=== PATIENT | male | born 1950 | race Two or more races ===

== ENCOUNTER 2021-03-21 13:43 | Inpatient (IN) | payer OTHER ==
[~2021-03-21] VITALS: Ht 165.1 cm; Wt 70.7 kg
[2021-03-21 14:20] LABS: Basophils # (auto) 0 10 ^3/uL (0-0.2); Basophils % (auto) 0.5 % (0.0-2.0); Eosinophils # (auto) 0.1 10 ^3/uL (0-0.8); Eosinophils % (auto) 1.5 % (0.0-7.0); Hematocrit 43.2 % (41.0-53.0); Hemoglobin 14.5 g/dL (13.5-17.5); Lymphocytes # (auto) 2.8 10 ^3/uL (0.4-5.4); Lymphocytes % (auto) 31.4 % (10.0-50.0); Mean Corpuscular Hgb Conc. 33.5 g/dL (32.0-36.0); Mean Corpuscular Volume 86.6 fL (80.0-100.0); Monocytes # (auto) 0.6 10 ^3/uL (0-1.3); Monocytes % (auto) 6.7 % (0.0-12.0); Neutrophils # (auto) 5.4 10 ^3/uL (1.6-8.6); Neutrophils % (auto) 59.9 % (37.0-80.0); Nucleated Red Blood Cells % 0.1 %; Red Blood Cells 4.98 10^6/uL (4.5-5.90); Red Cell Distribution Width 14.7 % (11.8-14.3)
[2021-03-21 14:50] LABS: Alanine Aminotransferase 23 U/L (16-61); Albumin 3.6 g/dL (3.4-5.0); Anion Gap 10 (5-15); Aspartate Aminotransferase 14 U/L (15-37); BUN/Creatinine Ratio 16.3; Blood Urea Nitrogen 26 mg/dL (7-18); Calcium 9.1 mg/dL (8.5-10.1); Carbon Dioxide 26 mmol/L (21-32); Chloride 101 mmol/L (98-107); GFR African American 55 mL/min; GFR Non-African American 45 mL/min; Glucose 134 mg/dL (74-106); Sodium 137 mmol/L (136-145)
[2021-03-21 14:51] LABS: Partial Thromboplastin Time 22.8 sec (23.6-33.0)
[2021-03-21 14:57] LABS: Alkaline Phosphatase 60 U/L (45-117); Bilirubin, Total 0.6 mg/dL (0.2-1.0); Total Protein 7.2 g/dL (6.4-8.2)
[2021-03-21] MEDS ORDERED: HYDROcodone-ACET 5/325MG TAB PO PRN (16:30)
[2021-03-21] MEDS ORDERED: MORPHINE SULFATE INJECTION 2 MG/ML SYRG IV PRN (16:30)
[2021-03-21] MEDS ORDERED: NITROGLYCERIN 0.4 MG SL TAB SL PRN (16:30)
[2021-03-21] MEDS ORDERED: MORPHINE SULFATE 4 MG/ML SYR/VIAL IV PRN (16:30)
[2021-03-21] MEDS ORDERED: ONDANSETRON HCL 4 MG/2 ML VIAL IV PRN (16:30)
[2021-03-21] MEDS ORDERED: LORazepam 2MG/ML-1ML VIAL IV ONE (17:15)
[2021-03-21] MEDS: PANTOPRAZOLE 40 MG TAB PO SCH (22:00)
[2021-03-22] MEDS ORDERED: ADENOSINE 50 MG in GIVE UN-DILUTED 0 ML IV STA (08:26)
[2021-03-22 08:32] VITALS: BP 134/73
[2021-03-22] MEDS: ASPirin 81 mg TAB PO SCH (08:56)
[2021-03-22] MEDS: ENOXAPARIN SOD 40 MG/0.4 ML SYRINGE SC SCH (08:56)
[2021-03-22] MEDS: PANTOPRAZOLE 40 MG TAB PO SCH ×2 (08:56→21:27)
[2021-03-22 09:41] VITALS: BP 121/68
[2021-03-22 17:00] VITALS: BP 132/87
[2021-03-22 22:00] VITALS: BP 146/74
[2021-03-23 05:00] VITALS: BP 141/75
[2021-03-23 09:00] VITALS: BP 144/88
[2021-03-23] MEDS: ASPirin 81 mg TAB PO SCH (09:05)
[2021-03-23] MEDS: PANTOPRAZOLE 40 MG TAB PO SCH ×2 (09:05→22:08)
[2021-03-23] MEDS: ENOXAPARIN SOD 40 MG/0.4 ML SYRINGE SC SCH (09:06)
[2021-03-23 11:58] LABS: Basophils # (auto) 0 10 ^3/uL (0-0.2); Basophils % (auto) 0.3 % (0.0-2.0); Eosinophils # (auto) 0.1 10 ^3/uL (0-0.8); Hematocrit 41.2 % (41.0-53.0); Hemoglobin 14.2 g/dL (13.5-17.5); Lymphocytes # (auto) 1.7 10 ^3/uL (0.4-5.4); Lymphocytes % (auto) 28.8 % (10.0-50.0); Mean Corpuscular Hemoglobin 29.8 pg (28.0-32.0); Mean Corpuscular Hgb Conc. 34.4 g/dL (32.0-36.0); Mean Corpuscular Volume 86.5 fL (80.0-100.0); Monocytes # (auto) 0.4 10 ^3/uL (0-1.3); Monocytes % (auto) 6.3 % (0.0-12.0); Neutrophils # (auto) 3.6 10 ^3/uL (1.6-8.6); Neutrophils % (auto) 62.6 % (37.0-80.0); Red Blood Cells 4.77 10^6/uL (4.5-5.90); Red Cell Distribution Width 14.4 % (11.8-14.3); White Blood Cell 5.8 10^3/uL (4.4-10.8)
[2021-03-23] MEDS: CARISOPRODOL 350 MG TAB PO PRN (11:59)
[2021-03-23 12:50] LABS: BUN/Creatinine Ratio 19.6; Calcium 8.5 mg/dL (8.5-10.1); Potassium 4.1 mmol/L (3.5-5.1)
[2021-03-23] MEDS ORDERED: IOHEXOL 350 MG/ML 100ML IJ ONE (13:27)
[2021-03-23 22:25] VITALS: BP 129/75
[2021-03-24 05:00] VITALS: BP 125/78
[2021-03-24] MEDS: ASPirin 81 mg TAB PO SCH (08:31)
[2021-03-24] MEDS: PANTOPRAZOLE 40 MG TAB PO SCH (08:31)
[2021-03-24] MEDS: ENOXAPARIN SOD 40 MG/0.4 ML SYRINGE SC SCH (08:32)
[2021-03-24] MEDS: CARISOPRODOL 350 MG TAB PO PRN (10:18)
== END 2021-03-24 10:40 | DRG 313 ==
LOC: EDBD 13:43 → ER 13:50 → EEVIPCON 13:50 → TELE 16:25 → TELE-WESTW 03-22 08:38
PROVIDERS: ADMIT Specialist; ATTEND Specialist
DX: R07.9 Chest pain, unspecified (principal); I10 Essential (primary) hypertension; E78.5 Hyperlipidemia, unspecified; Z20.822 Contact with and (suspected) exposure to COVID-19; J43.9 Emphysema, unspecified
CPT/HCPCS: 36415; 71045; 71275; 78452; 80048; 80053; 83735; 83880; 84484; 85025; 85379; 85610; 85730; 87426; 93005; 93017; 93306; G0378; J0153